=== PATIENT | male | born 1935 | race Caucasian/White ===

== ENCOUNTER 2022-03-01 13:35 | Inpatient (IN) | payer OTHER ==
[~2022-03-01] VITALS: Ht 167.6 cm; Wt 85.9 kg
[~2022-03-01 13:35] MED LIST: AMOX TR-K CLV1 EAC4 PO; CLOPIDOGREL75 MG PO; ELIQUIS 5 MG TAB5 MG PO; FISH OIL 1,0001 EACH PO; LASIX TAB 20 MG20 MG PO; LEVOTHYROXINE112 MCG PO; MIRALAX17 GM PO; NORCO 5-325 TA1 EACH PO; TOPROL XL25 MG PO; VITAMIN D1000 UNIT PO; ZOFRAN4 MG PO
[2022-03-01 13:54] LABS: HEMOGLOBIN 12.8 gm/dl (14.0-17.5); RED BLOOD COUNT 4.58 M/UL (4.20-5.50); WHITE BLOOD COUNT 9.2 K/UL (4.5-11.0)
[2022-03-01] MEDS ORDERED: SERTRALINE HCL50 MG PO (14:59)
[2022-03-01] MEDS ORDERED: ASPIRIN EC81 MG PO (14:59)
[2022-03-01] MEDS ORDERED: LEVOTHYROXINE75 MCG PO (15:00)
[2022-03-01] MEDS ORDERED: CALCIUM 500 +1 EAC5 PO (15:03)
[2022-03-01] MEDS ORDERED: VYNDAMAX61 MG PO (15:36)
[2022-03-02 01:44] LABS: HEMOGLOBIN 11.6 gm/dl (14.0-17.5); RED BLOOD COUNT 4.13 M/UL (4.20-5.50)
[2022-03-02 01:45] LABS: WHITE BLOOD COUNT 6.8 K/UL (4.5-11.0)
[2022-03-02 02:33] LABS: BUN/CREATININE RATIO 22 (0-10)
[2022-03-03 05:16] LABS: HEMOGLOBIN 12.5 gm/dl (14.0-17.5); RED BLOOD COUNT 4.51 M/UL (4.20-5.50)
[2022-03-03] MEDS ORDERED: CLEOCIN HCL300 MG PO (11:25)
[2022-03-03] MEDS ORDERED: HYDROCODON-ACE1 EAC4 PO (11:25)
[2022-03-03] MEDS ORDERED: LEVOFLOXACIN500 MG PO (11:25)
[2022-03-04 03:51] LABS: HEMOGLOBIN 11.9 gm/dl (14.0-17.5); RED BLOOD COUNT 4.27 M/UL (4.20-5.50); WHITE BLOOD COUNT 8.3 K/UL (4.5-11.0)
[2022-03-04] MEDS ORDERED: METOPROLOL SUCC25 MG PO (09:42)
== END 2022-03-04 10:34 | disposition home or self-care (01) | DRG 243 ==
LOC: ER1 13:35 → CDU 14:24 → CCU 14:24 → PROG CARE 16:27 → CCU 17:52
PROVIDERS: Family Medicine; Physician Assistant Medical; ADMIT Internal Medicine
PROC: B24BZZZ Ultrasonography of Heart with Aorta (ICD-10-PCS; principal; 2022-03-02)
PROC: 0JH607Z Insertion of Cardiac Resynchronization Pacemaker Pulse Generator into Chest Subcutaneous Tissue and Fascia, Open Approach (ICD-10-PCS; 2022-03-03)
PROC: 02H60JZ Insertion of Pacemaker Lead into Right Atrium, Open Approach (ICD-10-PCS; 2022-03-03)
PROC: 02HK3JZ Insertion of Pacemaker Lead into Right Ventricle, Percutaneous Approach (ICD-10-PCS; 2022-03-03)
DX: I49.5 Sick sinus syndrome (principal); E85.4 Organ-limited amyloidosis; I50.22 Chronic systolic (congestive) heart failure; I48.19 Other persistent atrial fibrillation; I13.0 Hypertensive heart and chronic kidney disease with heart failure and stage 1 through stage 4 chronic kidney disease, or unspecified chronic kidney disease; Z20.822 Contact with and (suspected) exposure to COVID-19; I08.3 Combined rheumatic disorders of mitral, aortic and tricuspid valves; E03.9 Hypothyroidism, unspecified; I45.10 Unspecified right bundle-branch block; N18.9 Chronic kidney disease, unspecified; I08.1 Rheumatic disorders of both mitral and tricuspid valves; K21.9 Gastro-esophageal reflux disease without esophagitis; I43 Cardiomyopathy in diseases classified elsewhere; Z79.01 Long term (current) use of anticoagulants; Z79.82 Long term (current) use of aspirin; Z90.49 Acquired absence of other specified parts of digestive tract; Z83.3 Family history of diabetes mellitus; Z87.891 Personal history of nicotine dependence
CPT/HCPCS: ECHO; 33208; 33225; 36415; 71045; 80048; 80053; 82550; 82553; 83735; 84439; 84443; 84484; 85025; 85027; 85610; 93005; 93306; 99152; 99153; 99285; C1769; C1898; C1900; C2621; J1644; J2250; J3010; J3370; J7040; J7050; J7070; Q9965